=== PATIENT | male | born 1970 | race Caucasian/White ===

== ENCOUNTER 2023-03-13 11:16 | Emergency (ER) | payer OTHER ==
[~2023-03-13] VITALS: Ht 182.9 cm; Wt 74.8 kg
[2023-03-13 13:07] VITALS: BP_SYST 120
== END 2023-03-13 13:30 | disposition home or self-care (01) ==
LOC: SED 11:16
DX: S62.615A Displaced fracture of proximal phalanx of left ring finger, initial encounter for closed fracture (principal); Z79.899 Other long term (current) drug therapy; W23.1XXA Caught, crushed, jammed, or pinched between stationary objects, initial encounter; Y93.89 Activity, other specified; Y92.89 Other specified places as the place of occurrence of the external cause; Y99.8 Other external cause status
CPT/HCPCS: 99283